=== PATIENT | male | born 1955 | race African-American/Black ===

== ENCOUNTER 2018-08-31 01:42 | Inpatient (IN) | payer MEDICARE ==
[2018-08-31] VITALS (8 sets, daily range): BP systolic 80–119; BP diastolic 44–68; BMI 32.6
[2018-08-31 02:17] LABS: BASOPHILS 0.1 % (0-2); EOSINOPHILS 3.1 % (0-7); HEMATOCRIT 40.2 % (42.0-54.0); IMMATURE GRANULOCYTES 0.1 % (0-5); LYMPHOCYTES 16.9 % (15-50); MCHC 32.3 g/dL (31.0-37.0); MCV 86.6 fL (80.0-100.0); MEAN PLATELET VOLUME 10.9 fL (7.4-10.4); NEUTROPHILS 72.8 % (40-80); PLATELET COUNT 234 10x3/uL (130-400); RBC 4.64 10x6/uL (4.20-6.10); RDW 15.1 % (11.5-14.5); WBC 8.7 10x3/uL (4.8-10.8)
[2018-08-31 02:31] LABS: APTT 26.4 SECONDS (22.8-39.4); INR 1.09 (0.85-1.17); PROTIME 13.6 SECONDS (11.6-15.0)
[2018-08-31 02:44] LABS: ALBUMIN 3.4 g/dL (3.4-5.0); ALKALINE PHOSPHATASE 75 U/L (46-116); ALT (SGPT) 36 U/L (10-68); CALC OSMOLALITY 281 mosm/kg (275-300); CALCIUM 9.5 mg/dL (8.5-10.1); CARBON DIOXIDE 30.4 mmol/L (21.0-32.0); CHLORIDE - SERUM 97 mmol/L (98-107); GLUCOSE 120 mg/dL (74-106); POTASSIUM - SERUM 3.7 mmol/L (3.5-5.1); PROTEIN - SERUM 8.5 g/dL (6.4-8.2); SODIUM 137 mmol/L (136-145); UREA NITROGEN 31 mg/dL (7-18); eGFR NON AFRICAN AMERICAN 36 mL/min (90-120)
[2018-08-31 02:47] LABS: CKMB 4.1 U/L (0.0-3.6); CREATINE KINASE 465 UL (21-232); LIPASE 87 U/L (73-393); MAGNESIUM - SERUM 1.7 mg/dL (1.8-2.4); PRO BNP 213 pg/mL (0-125)
[2018-08-31 02:52] LABS: TROPONIN-I < 0.017 ng/mL (0.000-0.060)
--- NOTE | 2018-08-31 03:51 | NUR ---
REPORT CALLED TO DARRELL, FLOOR NURSE.
[2018-08-31] MEDS ORDERED: UNKNOWN DIABETIC MED (04:37)
[2018-08-31] MEDS ORDERED: UNKNOWN CHOLESTEROL (04:37)
[2018-08-31] MEDS ORDERED: UNKNOWN BP MED (04:37)
[2018-08-31] MEDS ORDERED: [UNRECOGNIZED DRUG - REMARK] (04:38)
[2018-08-31] MEDS ORDERED: [UNRECOGNIZED DRUG - REMARK] (04:39)
--- NOTE | 2018-08-31 07:45 | NUR ---
ASSESSMENT DONE. PT APPEARS RESTLESS. PRESENTS RESTING, EYES CLOSED WITH SNORING RESPIRATIONS.
--- NOTE | 2018-08-31 13:44 | MORECARE ---
CASE MANAGEMENT DISCHARGE SUMMARY PATIENT: TRAMAINE VIGIL UNIT: [id number] ADM DATE: 08/31/18 AGE: 63 : 57 SEX: M ROOM/BED: D.2120 AUTHOR: ESSENCE CUELLAR PHYSICIAN: REFERRING PHYSICIAN: GENE DARBY MD DATE OF SERVICE: 08/31/18 Discharge Plan Patient Name: TRAMAINE VIGIL [facility] [facility] 1955 Planned Disposition: Home Anticipated Discharge Date: 09/01/18 Discharge Date: Expected LOS: 1 Initial Reviewer: [email or web address] Initial Review Date: 08/31/2018 Generated: 08/31/18 2:43 pm DCP- Discharge Planning Updated by [email or web address]: Yecenia Curtis on 08/31/18 12:[address] CM noted patient is a [facility], spoke to patient's sister Miranda Isabel who stated the patient only has Medicare A only and is not able to afford to stay here for care. CM contacted the [facility], spoke to Terri who stated since the patient was already admitted that we needed to call back tomorrow as there is a different team that works on admitted transfers. Questioned if the [facility] would cover his stay here and she stated she was not able to answer that question. Cm had family sign the consent to transfer and faxed it to the [facility]. Confirmation received and attached to the signed form and placed in the patient's chart. Yecenia Curtis RN, CCM Patient Name: TRAMAINE VIGIL Page [id number] at 1344 All edits/amendments must be made on the electronic document DICTATION DATE: 08/31/18 1343 AUTO SEAT COVER INSTALLER: CARYN 08/31/18 1343 RPT#: [id number] DC DATE: STATUS: ADM IN [facility] [address] [place] [address] END OF REPORT
[2018-08-31 14:48] LABS: % SATURATION 52 % (15-55); IRON 188 ug/dl (35-150); TOTAL IRON BIND CAPACITY 356 ug/dl (260-445); UNSAT IRON BIND CAPACITY 168 ug/dl (150-375)
--- NOTE | 2018-08-31 16:00 | NUR ---
BP 76/38. 500CC BOLUS STARTED. BP INCREASED TO 92/62.
[2018-08-31 16:49] LABS: APPEARANCE CLEAR (CLEAR); BILIRUBIN NEGATIVE (NEGATIVE); COLOR STRAW (YELLOW); GLUCOSE NEGATIVE (NEGATIVE); KETONE NEGATIVE (NEGATIVE); NITRITE NEGATIVE (NEGATIVE); PROTEIN TRACE mg/dL (NEGATIVE); UROBILINOGEN NORMAL (NORMAL)
--- NOTE | 2018-08-31 17:00 | NUR ---
PT STATED IV FELL OUT. CATHETER INTACT.
[2018-08-31 17:10] LABS: UDS - AMPHET NEGATIVE QUAL (NEGATIVE); UDS - BARB NEGATIVE QUAL (NEGATIVE); UDS - BENZO NEGATIVE QUAL (NEGATIVE); UDS - COCAINE POSITIVE QUAL (NEGATIVE); UDS - OPIATE POSITIVE QUAL (NEGATIVE); UDS - PCP NEGATIVE QUAL (NEGATIVE); UDS - THC NEGATIVE QUAL (NEGATIVE)
[2018-08-31] MEDS ORDERED: VOLTAREN100 GM TOPICAL (17:35)
[2018-08-31] MEDS ORDERED: FISH OIL 1,0001 CA1 PO (17:38)
[2018-08-31] MEDS ORDERED: FLUTICASONE PRO16 GM NASAL (17:40)
[2018-08-31] MEDS ORDERED: NEURONTIN 300300 MG PO (17:41)
[2018-08-31] MEDS ORDERED: LOZOL 2.5 MG T2.5 MG PO (17:42)
[2018-08-31] MEDS ORDERED: LACTINEX C1 TAB.CHEW PO (17:42)
[2018-08-31] MEDS ORDERED: OMEPRAZOLE20 M1 PO (17:43)
[2018-08-31] MEDS ORDERED: COZAAR100 MG PO (17:44)
[2018-08-31] MEDS ORDERED: VIAGRA100 MG PO (17:45)
--- NOTE | 2018-08-31 17:45 | NUR ---
I have reviewed this patient and I concur with the Shift Assessment completed by the Licensed Practical Nurse today this shift.
[2018-08-31] MEDS ORDERED: FLOMAX0.4 MG PO (17:46)
[2018-08-31] MEDS ORDERED: KLONOPIN0.5 MG PO (17:51)
[2018-08-31] MEDS ORDERED: HYDROCODON-ACE1 EAC2 PO (17:52)
[2018-08-31] MEDS ORDERED: ROBAXIN500 MG PO (17:54)
[2018-08-31] MEDS ORDERED: INDOCIN25 MG PO (17:55)
[2018-08-31] MEDS ORDERED: GLUCOPHAGE850 MG PO (17:58)
[2018-08-31] MEDS ORDERED: NORVASC10 MG PO (18:01)
[2018-08-31] MEDS ORDERED: ASPIRIN81 MG PO (18:01)
[2018-08-31] MEDS ORDERED: LIPITOR10 MG PO (18:03)
[2018-08-31] MEDS ORDERED: VITAMIN B-121000 MCG PO (18:04)
[2018-08-31] MEDS ORDERED: CYMBALTA60 MG PO (18:05)
[2018-08-31] MEDS ORDERED: PROSCAR5 MG PO (18:06)
--- NOTE | 2018-08-31 19:47 | NUR ---
RECEIVED REPORT, WILL ASSUME CARE OF PT, TALKING ON PHONE, DENIES ANY NEEDS AT THIS TIME, BED IS LOW, SRX2, CALL LIGHT IN REACH, WILL CONTINUE PLAN OF CARE
--- NOTE | 2018-09-01 03:27 | NUR ---
I have reviewed this patient and I concur with the Shift Assessment completed by the Licensed Practical Nurse today this shift.
[2018-09-01 03:55] VITALS: BP 119/78
[2018-09-01 05:25] LABS: BASOPHILS 0.2 % (0-2); HEMATOCRIT 38.9 % (42.0-54.0); HEMOGLOBIN 12.4 g/dL (13.5-17.5); IMMATURE GRANULOCYTES 0.3 % (0-5); LYMPHOCYTES 28.4 % (15-50); MCHC 31.9 g/dL (31.0-37.0); MCV 87.8 fL (80.0-100.0); MEAN PLATELET VOLUME 10.1 fL (7.4-10.4); MONOCYTES 9.6 % (2-11); NEUTROPHILS 57.5 % (40-80); PLATELET COUNT 193 10x3/uL (130-400); RBC 4.43 10x6/uL (4.20-6.10); RDW 15.1 % (11.5-14.5)
[2018-09-01 05:33] LABS: WBC 6.5 10x3/uL (4.8-10.8)
[2018-09-01 05:47] LABS: ALBUMIN 2.9 g/dL (3.4-5.0); ALKALINE PHOSPHATASE 72 U/L (46-116); ALT (SGPT) 31 U/L (10-68); BILIRUBIN - TOTAL 0.25 mg/dL (0.2-1.3); CALC OSMOLALITY 283 mosm/kg (275-300); CALCIUM 8.9 mg/dL (8.5-10.1); CARBON DIOXIDE 31.7 mmol/L (21.0-32.0); CHLORIDE - SERUM 101 mmol/L (98-107); CREATININE - SERUM 1.3 mg/dL (0.6-1.3); GLUCOSE 116 mg/dL (74-106); MAGNESIUM - SERUM 1.8 mg/dL (1.8-2.4); POTASSIUM - SERUM 3.2 mmol/L (3.5-5.1); PROTEIN - SERUM 7.2 g/dL (6.4-8.2); SODIUM 140 mmol/L (136-145); TROPONIN-I < 0.017 ng/mL (0.000-0.060); UREA NITROGEN 24 mg/dL (7-18); eGFR NON AFRICAN AMERICAN 59 mL/min (90-120)
--- NOTE | 2018-09-01 07:15 | NUR ---
RECEIVED PT IN BED EYES CLOSED RESP UNLAORED SKIN W/D NAD NOTED
[2018-09-01 08:05] VITALS: BP 107/61
[2018-09-01 11:38] VITALS: BP 112/76
[2018-09-01 13:07] VITALS: BMI 32.5
[2018-09-01 18:48] VITALS: BP 130/85
--- NOTE | 2018-09-01 19:32 | NUR ---
ASSESSMENT COMPLETE, PT A&O. RESPERATIONS EVEN ON RA. IV TO LEFT ARM SL, PT REFUSES TO HAVE SL INFUSING. PT CURRENTLY DENIES PAIN OR NEEDS, BED LOW, CL IN REACH.
[2018-09-01 20:00] VITALS: BP 119/66
--- NOTE | 2018-09-01 21:40 | NUR ---
BS 114, NO COVERAGE PER S/S.
--- NOTE | 2018-09-01 22:32 | NUR ---
SNACK PROVIDED AT PT REQUEST.
--- NOTE | 2018-09-02 00:33 | NUR ---
I have reviewed this patient and I concur with the Shift Assessment completed by the Licensed Practical Nurse today this shift.
--- NOTE | 2018-09-02 02:47 | NUR ---
RESTING WITH EYES CLOSED, RESPERATIONS EVEN, NO S/S DISTRESS NOTED.
[2018-09-02 04:00] VITALS: BP 126/70
--- NOTE | 2018-09-02 07:33 | NUR ---
ALERT AND ORIENTED. TELEMERTY SHOWS SR 89. UP AB YULIYA.ON ROOM AIR. NO NEEDS VOICED. SR UP WITH CALL LIGHT IN REACH
[2018-09-02 08:09] VITALS: BP 114/71
[2018-09-02 08:13] LABS: FOLATE (FOLIC ACID) - SERUM >20.0 ng/mL (>3.0)
[2018-09-02 12:09] VITALS: BP 135/79
[2018-09-02 16:34] VITALS: BP 149/57
--- NOTE | 2018-09-02 18:35 | NUR ---
DISCHARGED. IV DCD WITH TIP INTACK. INSTRUCTIONS GIVEN. AWAITING RIDE
--- NOTE | 2018-09-04 09:35 | MORECARE ---
CASE MANAGEMENT DISCHARGE SUMMARY PATIENT: TRAMAINE VIGIL UNIT: [id number] ADM DATE: 08/31/18 AGE: 63 : 57 SEX: M ROOM/BED: D.2120 AUTHOR: ESSENCE CUELLAR PHYSICIAN: REFERRING PHYSICIAN: GENE DARBY MD DATE OF SERVICE: 09/04/18 Discharge Plan Patient Name: TRAMAINE VIGIL [facility] : 1955 Planned Disposition: Home Anticipated Discharge Date: 09/02/18 Discharge Date: 09/02/2018 Expected LOS: 2 Initial Reviewer: [email or web address] Initial Review Date: 08/31/2018 Generated: 09/04/18 10:35 am DCP- Discharge Planning Updated by [email or web address]: Yecenia Curtis on 08/31/18 12:[address] CM noted patient is a [facility] Patient, spoke to patient's sister Miranda Isabel who stated the patient only has Medicare A only and is not able to afford to stay here for care. CM contacted the [facility], spoke to Terri who stated since the patient was already admitted that we needed to call back tomorrow as there is a different team that works on admitted transfers. Questioned if the [facility] would cover his stay here and she stated she was not able to answer that question. Cm had family sign the consent to transfer and faxed it to the [facility]. Confirmation received and attached to the signed form and placed in the patient's chart. Yecenia Curtis RN, [facility] Last DP export: 08/31/18 12:44 p Patient Name: TRAMAINE VIGIL Page [phone] at 0935 All edits/amendments must be made on the electronic document DICTATION DATE: 09/04/18934 COLLAR BASTER JUMPBASTING: CARYN 09/04/18934 RPT#: [id number] DC DATE:09/02/18 STATUS: DIS IN [facility] [address] [place] [address] END OF REPORT
== END 2018-09-02 19:04 | disposition short-term general hospital (02) | DRG 311 ==
LOC: D.ER 01:42 → D.M2 03:11
PROVIDERS: Family Medicine; ADMIT Internal Medicine Nephrology; ATTEND Internal Medicine Nephrology
DX: I20.0 Unstable angina (principal); F17.213 Nicotine dependence, cigarettes, with withdrawal; N17.9 Acute kidney failure, unspecified; I10 Essential (primary) hypertension; K21.9 Gastro-esophageal reflux disease without esophagitis; F14.90 Cocaine use, unspecified, uncomplicated; D64.9 Anemia, unspecified; E83.42 Hypomagnesemia; E11.9 Type 2 diabetes mellitus without complications

== ENCOUNTER 2020-06-18 21:08 | Inpatient (IN) | payer OTHER ==
[~2020-06-18] VITALS: Ht 182.9 cm; Wt 118.2 kg
[~2020-06-18 21:08] MED LIST: ASPIRIN81 MG PO; COZAAR100 MG PO; CYMBALTA60 MG PO; FISH OIL 1,0001 CA1 PO; FLOMAX0.4 MG PO; FLUTICASONE PRO16 GM NASAL; GLUCOPHAGE850 MG PO; HYDROCODON-ACE1 EAC2 PO; INDOCIN25 MG PO; KLONOPIN0.5 MG PO; LACTINEX C1 TAB.CHEW PO; LIPITOR10 MG PO; LOZOL 2.5 MG T2.5 MG PO; NEURONTIN 300300 MG PO; NORVASC10 MG PO; OMEPRAZOLE20 M1 PO; PROSCAR5 MG PO; ROBAXIN500 MG PO; UNKNOWN BP MED; UNKNOWN CHOLESTEROL; UNKNOWN DIABETIC MED; VIAGRA100 MG PO; VITAMIN B-121000 MCG PO; VOLTAREN100 GM TOPICAL; [UNRECOGNIZED DRUG - REMARK]; [UNRECOGNIZED DRUG - REMARK]
[2020-06-18 21:54] LABS: BASOPHILS 0.2 % (0-2); EOSINOPHILS 1.1 % (0-7); HEMATOCRIT 39.3 % (42.0-54.0); IMMATURE GRANULOCYTES 0.2 % (0-5); LYMPHOCYTE ABS# 1.31 10x3/uL (1.32-3.57); MCH 29.9 pg (26.0-34.0); MCHC 33.1 g/dL (31.0-37.0); MCV 90.3 fL (80.0-100.0); MEAN PLATELET VOLUME 11.1 fL (7.4-10.4); NEUTROPHIL ABS# 5.86 10x3/uL (1.78-5.38); NEUTROPHILS 71.5 % (40-80); PLATELET COUNT 203 10x3/uL (130-400); RBC 4.35 10x6/uL (4.20-6.10); RDW 13.8 % (11.5-14.5); WBC 8.2 10x3/uL (4.8-10.8)
[2020-06-18 21:56] LABS: CALC OSMOLALITY 274 mosm/kg (275-300); CALCIUM 9.1 mg/dL (8.5-10.1); CARBON DIOXIDE 27.2 mmol/L (21.0-32.0); CHLORIDE - SERUM 100 mmol/L (98-107); GLUCOSE 109 mg/dL (74-106); POTASSIUM - SERUM 3.9 mmol/L (3.5-5.1); SODIUM 136 mmol/L (136-145); UREA NITROGEN 19 mg/dL (7-18); eGFR NON AFRICAN AMERICAN 80 mL/min (90-120)
[2020-06-18 21:57] LABS: APTT 33.4 SECONDS (22.8-39.4); INR 1.46 (0.85-1.17); PROTIME 16.5 SECONDS (11.6-15.0)
--- NOTE | 2020-06-18 22:00 | NUR ---
PT WILL NOT KEEP MONITOR OR O2 ON. PT STATES "I JUST CANT HAVE THAT ON ME"
[2020-06-18 22:13] LABS: ALBUMIN 3.4 g/dL (3.4-5.0); ALKALINE PHOSPHATASE 73 U/L (30-120); ALT (SGPT) 32 U/L (10-68); BILIRUBIN - TOTAL 0.91 mg/dL (0.2-1.3); MAGNESIUM - SERUM 1.8 mg/dL (1.8-2.4); PROTEIN - SERUM 7.6 g/dL (6.4-8.2); TROPONIN-I < 0.017 ng/mL (0.000-0.060)
[2020-06-18 22:15] LABS: CREATINE KINASE 1370 UL (21-232)
[2020-06-18 22:51] LABS: BILIRUBIN NEGATIVE (NEGATIVE); KETONE NEGATIVE (NEGATIVE); NITRITE NEGATIVE (NEGATIVE); UROBILINOGEN NORMAL mg/dL (< 2)
[2020-06-18 22:52] LABS: WHITE CELLS - URINE 0-5 HPF (0-1)
[2020-06-18 22:55] LABS: BACTERIA FEW HPF (NONE SEEN); SQUAMOUS EPITHELIAL 3 HPF (0-4)
[2020-06-18 23:00] LABS: UDS - AMPHET NEGATIVE QUAL (NEGATIVE); UDS - BARB NEGATIVE QUAL (NEGATIVE); UDS - BENZO NEGATIVE QUAL (NEGATIVE); UDS - COCAINE POSITIVE QUAL (NEGATIVE); UDS - OPIATE POSITIVE QUAL (NEGATIVE); UDS - PCP NEGATIVE QUAL (NEGATIVE); UDS - THC NEGATIVE QUAL (NEGATIVE)
--- NOTE | 2020-06-18 23:00 | NUR ---
PT UP TO BATHROOM AT THIS TIME.
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
[2020-06-19] VITALS (7 sets, daily range): BP systolic 111–141; BP diastolic 55–81; Ht 182.9 cm; Wt 118.2 kg
--- NOTE | 2020-06-19 01:50 | NUR ---
RECIEVED FROM ER VIA WHEELCHAIR. ALERT WITH GARBLED SPEECH. O2 @ 2L PER NC ON.PATIENT REMOVED SAYING HE DIDNT NEED IT. REFUSED TELEMENTRY. STATES NO HEART PROBLEMS. ABLE TO ANSWER QUESTIONS APPROPRIATLEY BUT SEEING"LITTLE FUR BALLS WALKING AROUND ON THE FLOOR". SL TO LFA INTACT WITHOUT REDENSS OR EDEMA NOTED. ORIENTED TO ROOM. CL IN REACH
--- NOTE | 2020-06-19 02:27 | NUR ---
ADMISSION ASSESSMENT COMPLETE.
[2020-06-19 05:10] LABS: BASOPHILS 0.3 % (0-2); EOSINOPHILS 3.3 % (0-7); HEMATOCRIT 38.5 % (42.0-54.0); HEMOGLOBIN 12.6 g/dL (13.5-17.5); IMMATURE GRANULOCYTES 0.3 % (0-5); LYMPHOCYTE ABS# 1.64 10x3/uL (1.32-3.57); LYMPHOCYTES 23.2 % (15-50); MCH 29.6 pg (26.0-34.0); MCHC 32.7 g/dL (31.0-37.0); MCV 90.4 fL (80.0-100.0); MEAN PLATELET VOLUME 10.6 fL (7.4-10.4); MONOCYTES 9.8 % (2-11); NEUTROPHIL ABS# 4.47 10x3/uL (1.78-5.38); NEUTROPHILS 63.1 % (40-80); PLATELET COUNT 195 10x3/uL (130-400); RBC 4.26 10x6/uL (4.20-6.10); RDW 13.7 % (11.5-14.5); WBC 7.1 10x3/uL (4.8-10.8)
[2020-06-19 05:25] LABS: ALBUMIN 3.3 g/dL (3.4-5.0); BILIRUBIN - TOTAL 0.93 mg/dL (0.2-1.3); CALCIUM 8.9 mg/dL (8.5-10.1); CARBON DIOXIDE 30.7 mmol/L (21.0-32.0); CREATININE - SERUM 1.1 mg/dL (0.6-1.3); MAGNESIUM - SERUM 1.9 mg/dL (1.8-2.4); PHOSPHOROUS 4.1 mg/dL (2.5-4.9); POTASSIUM - SERUM 3.7 mmol/L (3.5-5.1); PROTEIN - SERUM 7.4 g/dL (6.4-8.2)
--- NOTE | 2020-06-20 01:00 | NUR ---
I have reviewed this patient and I concur with the Shift Assessment completed by the Licensed Practical Nurse today this shift.
--- NOTE | 2020-06-20 01:47 | NUR ---
UP AD YULIYA IN ROOM. NO DISTRESS NOTED. CL IN REACH
[2020-06-20 07:11] LABS: ALBUMIN 3.5 g/dL (3.4-5.0); ALKALINE PHOSPHATASE 80 U/L (30-120); ALT (SGPT) 35 U/L (10-68); BILIRUBIN - TOTAL 0.34 mg/dL (0.2-1.3); CALC OSMOLALITY 280 mosm/kg (275-300); CALCIUM 8.6 mg/dL (8.5-10.1); CARBON DIOXIDE 30.5 mmol/L (21.0-32.0); CHLORIDE - SERUM 100 mmol/L (98-107); GLUCOSE 120 mg/dL (74-106); MAGNESIUM - SERUM 1.7 mg/dL (1.8-2.4); PHOSPHOROUS 5.1 mg/dL (2.5-4.9); POTASSIUM - SERUM 3.6 mmol/L (3.5-5.1); PROTEIN - SERUM 7.3 g/dL (6.4-8.2); SODIUM 140 mmol/L (136-145); UREA NITROGEN 15 mg/dL (7-18); eGFR NON AFRICAN AMERICAN 80 mL/min (90-120)
[2020-06-20 07:21] LABS: BASOPHILS 0.4 % (0-2); EOSINOPHILS 4.2 % (0-7); HEMATOCRIT 40.9 % (42.0-54.0); HEMOGLOBIN 13.4 g/dL (13.5-17.5); IMMATURE GRANULOCYTES 0.4 % (0-5); LYMPHOCYTE ABS# 1.62 10x3/uL (1.32-3.57); LYMPHOCYTES 29.2 % (15-50); MCH 29.6 pg (26.0-34.0); MCHC 32.8 g/dL (31.0-37.0); MCV 90.3 fL (80.0-100.0); MEAN PLATELET VOLUME 11.4 fL (7.4-10.4); MONOCYTES 12.8 % (2-11); NEUTROPHIL ABS# 2.94 10x3/uL (1.78-5.38); PLATELET COUNT 219 10x3/uL (130-400); RBC 4.53 10x6/uL (4.20-6.10); RDW 13.5 % (11.5-14.5); WBC 5.5 10x3/uL (4.8-10.8)
[2020-06-20 09:22] VITALS: BP 130/81
[2020-06-20] MEDS ORDERED: IPRAT-ALBUT 0.5-3 ML UPD (13:13)
[2020-06-20] MEDS ORDERED: ALBUTEROL2.5 MG/3 M INH (13:13)
[2020-06-20] MEDS ORDERED: LASIX40 MG PO (13:14)
[2020-06-20] MEDS ORDERED: K-TAB10 MEQ PO (13:15)
[2020-06-20 14:42] VITALS: BP 146/90
[2020-06-20 16:03] LABS: CKMB 4.8 U/L (0.0-3.6)
[2020-06-20 16:04] LABS: CREATINE KINASE 633 UL (21-232); TROPONIN-I < 0.017 ng/mL (0.000-0.060)
[2020-06-20 18:55] VITALS: BP 142/85
[2020-06-20 20:00] VITALS: BP 94/75
[2020-06-20 21:12] LABS: CREATINE KINASE 629 UL (21-232)
[2020-06-20 21:15] LABS: TROPONIN-I < 0.017 ng/mL (0.000-0.060)
[2020-06-21 04:00] VITALS: BP 115/76
[2020-06-21 04:53] LABS: BASOPHILS 0.4 % (0-2); EOSINOPHILS 4.2 % (0-7); HEMATOCRIT 41.8 % (42.0-54.0); HEMOGLOBIN 13.4 g/dL (13.5-17.5); IMMATURE GRANULOCYTES 0.2 % (0-5); LYMPHOCYTE ABS# 1.73 10x3/uL (1.32-3.57); LYMPHOCYTES 31.9 % (15-50); MCH 29.3 pg (26.0-34.0); MCHC 32.1 g/dL (31.0-37.0); MCV 91.3 fL (80.0-100.0); MEAN PLATELET VOLUME 11.1 fL (7.4-10.4); MONOCYTES 11.6 % (2-11); NEUTROPHILS 51.7 % (40-80); PLATELET COUNT 231 10x3/uL (130-400); RBC 4.58 10x6/uL (4.20-6.10); RDW 13.6 % (11.5-14.5); WBC 5.4 10x3/uL (4.8-10.8)
[2020-06-21 05:18] LABS: ALBUMIN 3.3 g/dL (3.4-5.0); ALKALINE PHOSPHATASE 78 U/L (30-120); ALT (SGPT) 40 U/L (10-68); BILIRUBIN - TOTAL 0.36 mg/dL (0.2-1.3); CALC OSMOLALITY 280 mosm/kg (275-300); CALCIUM 8.7 mg/dL (8.5-10.1); CARBON DIOXIDE 32.4 mmol/L (21.0-32.0); CHLORIDE - SERUM 100 mmol/L (98-107); CKMB 3.4 U/L (0.0-3.6); CREATINE KINASE 555 UL (21-232); CREATININE - SERUM 1.2 mg/dL (0.6-1.3); GLUCOSE 113 mg/dL (74-106); MAGNESIUM - SERUM 1.9 mg/dL (1.8-2.4); PHOSPHOROUS 4.8 mg/dL (2.5-4.9); POTASSIUM - SERUM 3.4 mmol/L (3.5-5.1); PROTEIN - SERUM 7.6 g/dL (6.4-8.2); SODIUM 139 mmol/L (136-145); TROPONIN-I < 0.017 ng/mL (0.000-0.060); eGFR NON AFRICAN AMERICAN 65 mL/min (90-120)
[2020-06-21 05:25] LABS: UREA NITROGEN 19 mg/dL (7-18)
--- NOTE | 2020-06-21 05:33 | NUR ---
I have reviewed this patient and I concur with the Shift Assessment completed by the Licensed Practical Nurse today this shift.
--- NOTE | 2020-06-21 08:48 | EC ---
PATIENT:TRAMAINE VIGIL DATE OF SERVICE: 06/19/20 SEX: M MEDICAL RECORD: [id number] DATE OF : 57 LOCATION:[facility] AGE OF PATIENT: 65 ADMISSION DATE: 06/19/20 REFERRING PHYSICIAN: INTERPRETING PHYSICIAN: FLAVIO PENNINGTON MD ECHOCARDIOGRAM REPORT ECHO CHARGES 4 ECHO COMPLETE Date: 06/19/20 CLINICAL DIAGNOSIS: CP/SOB/COCAINE USE ECHOCARDIOGRAPHIC MEASUREMENTS (adult normal given) AC root (d.<3.7cm) 3.5 cm LV Septum d (<1.2 cm> 1.4 cm Valve Excursion 1.5 cm LV Septum (systole) 1.8 cm Left Atria (s.<4.0cm> 3.4 cm LVPW d(<1.2cm) 1.4 cm RV (d.<2.3cm) 2.9 cm LVPW (sytole) 2.1 cm LV diastole(<5.6CM) 6.0 cm MV E-F(>70mm/sec) cm LV systole 4.7 cm LVOT Diameter 2.1 cm MV exc.(>10mm) cm Est.ejection fraction (50-75%) % DOPPLER: LVIT cm/sec A 60.0 cm/sec E 41.0 cm/sec LA cm/sec RVSP 17.3 mmHg LVOT 90.0 cm/sec AOP1/2T m/s Asc. Ao 144 cm/sec RVOT 52.0 cm/sec RA cm/sec PA 92.0 cm/sec AV Gradient Peak 8.3 mmHg AV Mean 4.4 mmHg AV Area 2.1 cm MV Gradient Peak 2.8 mmHg MV Mean 1.0 mmHg MV Area cm COMMENTS: Design Coordinator: 1 SAVAGE PAL Air Battle Manager: 3 Dr. Luo TAPE# PACS Pericardial Effusion N DATE OF SERVICE: Adequate 2D, color flow imaging, spectral Doppler, and M-Mode. FINDINGS: LVH present. LV internal dimensions are normal. Wall motion normal. EF is greater than or equal to 55%. Aortic Valve is sclerotic. No evidence of stenosis by Doppler interrogation. Left atrium is normal at 3.4 cm. Mitral valve shows no prolapse. Trace MR. Right side is grossly normal. Trace TR. TRANSINT:[id number] Voice Confirmation ID: [id number] DOCUMENT ID: [id number] ECHOCARDIOGRAM REPORT [id number] TRAMAINE VIGIL,FLAVIO Valentin MD at 0848 CC: [id number] DICTATION DATE: 06/20/20 1310 ORACLE SOA ARCHITECT: 06/20/20 1543 ADM IN [facility] [address] [place] [address]
[2020-06-21 09:34] VITALS: BP 139/89
[2020-06-21 13:23] VITALS: BP 138/87
== END 2020-06-21 16:00 | disposition home or self-care (01) | DRG 292 ==
LOC: D.ER 21:08 → D.MS 06-19 00:53
PROVIDERS: Family Medicine; ADMIT Emergency Medicine; ATTEND Emergency Medicine
DX: I11.0 Hypertensive heart disease with heart failure (principal); M62.82 Rhabdomyolysis; K92.1 Melena; I50.33 Acute on chronic diastolic (congestive) heart failure; R13.10 Dysphagia, unspecified; F14.90 Cocaine use, unspecified, uncomplicated; G47.33 Obstructive sleep apnea (adult) (pediatric); E78.5 Hyperlipidemia, unspecified; K21.9 Gastro-esophageal reflux disease without esophagitis; E11.9 Type 2 diabetes mellitus without complications; J43.9 Emphysema, unspecified; F17.210 Nicotine dependence, cigarettes, uncomplicated; K57.30 Diverticulosis of large intestine without perforation or abscess without bleeding; K22.8 Other specified diseases of esophagus